=== PATIENT | male | born 1980 | race American Indian/Alaskan Native ===

== ENCOUNTER 2016-03-12 12:22 | Observation (INO) | payer OTHER ==
[~2016-03-12 12:22] MED LIST: ANCEF/STERILE WATER 2 GM/20 ML IV NR
--- NOTE | 2016-03-12 12:52 | Anesthesia Day of Surgery ---
Anesthesia Day of Surgery - Day of Surgery Patient Examined: Yes Patient H&P Reviewed: Yes Patient is NPO: Yes
--- NOTE | 2016-03-12 12:55 | Anesthesia Consultation ---
Anesthesia Consult and Med Hx Date of service: 03/12/16 - Airway Anesthetic Teeth Evaluation: Good ROM Head & Neck: Adequate Mental/Hyoid Distance: Adequate Mallampati Class: Class II Intubation Access Assessment: Probably Good - Pulmonary Exam CTA: Yes - Cardiac Exam Cardiac Exam: RRR - Pre-Operative Health Status ASA Pre-Surgery Classification: ASA2 Proposed Anesthetic Plan: General - Pre-Anesthesia Comment Pre-Anesthesia Comments: Cocaine and marijuanna last used on 03/10/16. - Pulmonary Hx Smoking: No Hx Sleep Apnea: No (DANITZA PRE SCREEN LOW RISK) - Cardiovascular System Hx Hypertension: No (high cholesterol, noncompliance with meds) - Central Nervous System Hx Seizures: No CVA: No - Gastrointestinal Hx Gastroesophageal Reflux Disease: Yes (no meds) - Endocrine Hx Renal Disease: No Hx Liver Disease: No Hx Non-Insulin Dependent Diabetes: No - Hematic Hx Anemia: No Hx Sickle Cell Disease: No - Other Systems Hx Alcohol Use: Yes (6 DRINKS PER DAY) Hx Substance Use: Yes (DAILY MARIJUANA, cocaine last used on 03/10/16) Hx Cancer: No Hx Obesity: Yes - Additional Comments Anesthesia Medical History Comments: NAC
[2016-03-12] MEDS ORDERED: VERSED IV NR (13:00)
[2016-03-12] MEDS ORDERED: PEPCID PO NR (13:00)
[2016-03-12] MEDS ORDERED: LACTATED RINGERS 1,000 ML IV SCH (13:00)
[2016-03-12 13:29] LABS: Basophils % (Auto) 0.8 % (0.0-1.8); Eosinophils % (Auto) 2.8 % (0.0-4.3); Hematocrit 45.1 % (35.5-45.6); Mean Corpuscular HGB Conc 33 % (32-34); Mean Corpuscular Hemoglobin 28 pg (28-32); Mean Corpuscular Volume 84 fl (84-94); Platelet Count 211 K/mm3 (140-440); Red Blood Count 5.35 M/mm3 (3.65-5.03); Red Cell Distribution Width 13.8 % (13.2-15.2); White Blood Count 3.5 K/mm3 (4.5-11.0)
[2016-03-12 13:43] LABS: Urine Drugs of Abuse Note Disclamer
[2016-03-12] MEDS ORDERED: DIPRIVAN 10 MG/ML IV ONE ×2 (15:07)
--- NOTE | 2016-03-12 15:08 | Post Operative Note ---
Pre-op diagnosis: hematuria ..? bladder lesion Post-op diagnosis: same Findings: mass at BN medial deviated ureters Procedure: cysto turbt Anesthesia: GETA Surgeon: EFREM HDZ Estimated blood loss: minimal Pathology: list (bladder lesions) Specimen disposition: to lab Condition: stable Disposition: PACU
--- NOTE | 2016-03-12 15:09 | Discharge Summary ---
Short Stay Discharge Plan Activity: other (no straining ) Weight Bearing Status: Full Weight Bearing Diet: low fat, low cholesterol, low salt Special Instructions: other (inc fluids .. no etoh) Durable Medical Equipment Needed Upon Discharge: other (young ) Follow up with: KRISTIE BRAND MD [Primary Care Provider] - 7 Days EFREM HDZ MD [Staff Physician] - 7 Days
[2016-03-12] MEDS ORDERED: DILAUDID ONE (15:11)
[2016-03-12] MEDS ORDERED: XYLOCAINE MPF 2% ONE (15:11)
[2016-03-12] MEDS ORDERED: WATER FOR IRRIG STERILE IR ONE ×2 (15:47)
[2016-03-12] MEDS ORDERED: OMNIPAQUE 300 MG/50 ML (CATH LAB) IV ONE (15:47)
[2016-03-12] MEDS ORDERED: NACL 0.9% IR ONE (16:00)
[2016-03-12] MEDS ORDERED: AMBIEN PO PRN (16:34)
[2016-03-12] MEDS ORDERED: NORCO 5/325 PO PRN (16:34)
[2016-03-12] MEDS ORDERED: NARCAN 0.4 MG/1 ML IV PRN (16:34)
[2016-03-12] MEDS ORDERED: ZOFRAN IV PRN ×2 (16:34→17:16)
[2016-03-12] MEDS ORDERED: NACL 0.9% IR SCH (17:00)
[2016-03-12] MEDS ORDERED: D5W/0.45% NACL/KCL 20 MEQ 1,000 ML IV SCH (17:00)
[2016-03-12] MEDS ORDERED: MORPHINE IV PRN (17:16)
--- NOTE | 2016-03-12 17:27 | Post Anesthesia Evaluation ---
- Post Anesthesia Evaluation Patient Participated: Yes Airway Patent: Yes Stable Respiratory Function: Yes Nausea/Vomiting: No Temp > 96.8F: Yes Pain Manageable: Yes Adequeate Hydration: Yes Anesthesia Complications: No Block Receding Appropriately: Not Applicable Patient on Ventilator: No
[2016-03-12] MEDS: DILAUDID IV PRN ×2 (17:46→17:55)
--- NOTE | 2016-03-12 18:32 | Operative Report ---
PREOPERATIVE DIAGNOSES: Hematuria and bladder mass. POSTOPERATIVE DIAGNOSES: Hematuria and bladder mass. PROCEDURE: Cystoscopy, retrograde, transurethral resection of the bladder mass. SURGEON: Waldemar Vuong MD ANESTHESIA: General. FINDINGS: This is a gentleman who presents with hematuria and bladder lesions. He now presents for cystoscopy. He reports that he uses cocaine and heavy alcohol abuse as well. He smokes lots of marijuana as well. DESCRIPTION OF PROCEDURE: The patient brought to the operating room and placed on the operating table. Following induction of anesthesia, placed in lithotomy position, prepped and draped in the usual sterile fashion. Cystourethroscopy upon entering the bladder showed a lesion at the 8 o'clock position and right in the midline and towards the left of the bladder neck. It almost looked like a cyst, possibly congenital cystic mass. It did not look like a papillary bladder cancer. It was distal to the orifices and trigone. Retrograde showed good filling, good drainage with medial deviation of the ureters. There were no persistent filling defects and there was good drainage. A #24 resectoscope was placed and the mass was resected. We did not do any resection on the left side of the bladder neck and most of the bladder neck was left intact because of his young age. We resected the mass and using the ball electrode, we cauterized it. The patient tolerated the procedure well. All the chips were evacuated out. We left a 3-way Finn. It is 4:30, we will observe him overnight with a [place]by drip. I notified his , his child, and he was brought to recovery in stable condition. JOB# [id number] SOHAIL/DYAN
[2016-03-12] MEDS: MORPHINE IV PRN (19:45)
[2016-03-12] MEDS: ANCEF/NS 1 GM/50 ML 50 ML IV SCH (23:00)
[2016-03-13] MEDS: MORPHINE IV PRN (02:30)
[2016-03-13] MEDS: ANCEF/NS 1 GM/50 ML 50 ML IV SCH (06:00)
--- NOTE | 2016-03-13 08:16 | Admit Criteria Form ---
Admission Criteria Documentation: AMBULATORY SURGERY EXCEPTION CRITERIA Ambulatory Surgery Exception Criteria ( Place 'X' for any and all applicable criteria): Surgery or procedure performed on ambulatory basis may require inpatient stay for[A] ANY ONE of the following(1)(2)(3)(4)(5)(6)(7)(8)(9): [] I. A preoperative situation, condition, or finding that warrants inpatient stay as indicated by ANY ONE of the following: [] a) Inpatient care needed because of severity of a disease or condition rather than the surgery (eg, severe cardiac or respiratory disease, severe infection) (15) (16 ) (17) (18) [] b) Emergent procedure (eg, angioplasty for acute ischemia)(19) [] c) Complex surgical approach or situation as indicated by ANY ONE of the following(3): [] i) Open approach needed instead of usual endoscopic, transcatheter, or other less invasive procedure [] ii) Difficult approach because of previous operation [] iii) Airway monitoring required after open neck procedures(20)(21) [] iv) Large mass requiring unusually extensive dissection [] v) Additional complicating feature requiring inpatient care (eg, drain management)(22(23): [] d) Major surgery in a pt with high anesthetic risk as indicated by ANY ONE of the following (2)(3)(5)(7)(8): [] i) ASA risk class III or higher (severe systemic disease impairing function) [D] [] ii) Advanced age (eg, older than 85 years)(14)(24) [] iii) Symptomatic heart failure(25) [] iv) Symptomatic asthma or COPD(8)(21) [] v) Morbid obesity with hemodynamic or respiratory problems(20)( 21)(26)(27) [] vi) Obstructive sleep apnea(20)(21) [] vii) Former premature infants who are younger than 60 weeks [] viii) High risk for severe postoperative abnormalities (eg, severe postoperative hypocalcemia after parathyroidectomy for severe hyperparathyroidism)(27)( 28) [] ix) Unstable angina(25) [] e) Drug-related risk requiring inpatient stay as indicated by ANY ONE of the following(5)(10)(14)(32)(33) [] i) Procedure requires discontinuing drugs or other therapy (eg , antiarrhythmic medication, antiseizure medication), which necessitates inpatient observation or treatment.(18)(31) [] ii) Major surgery and high risk drug use as indicated by ANY ONE of the following: [] 1) Active abuse of cocaine or similar drug [] 2) Monoamine oxidase inhibitor use [] 3) Other drug identified as posing risk [] f) Inadequate outpatient care situation as indicated by ANY ONE of the following(5)(10)(14)(32)(33) [] i) Patient lives remote from medical facility and procedure has urgent complication potential, and temporary nearby residence cannot be arranged [] ii) Patient will have postprocedure incapacitation and inadequate assistance at home, or alternative level of care cannot be arranged. [] iii) Patient will have long general anesthesia or procedure side effect resolution time, and competent person to stay with patient on first postoperative night at home or alternative level of care cannot be arranged. []iv) Other inadequate outpatient situation that cannot be handled by other means [X] II. A perioperative event, condition, or finding that warrants inpatient stay as indicated by ANY ONE of the following (1)(2)(3): [] a) Inadequate physiologic recovery: cardiovascular, respiratory, or hemodynamic status not normal or near preoperative baseline(18) [] b) Hemodynamic instability [] c) Patient not alert with near normal or baseline mental status [] d) Temperature not normal or as expected and not appropriate for outpatient treatment of condition [] e) Ambulatory or appropriate activity level status not yet achieved post procedure [E](34)(35)(36) [] f) Operative site not appropriate (eg, unexpected or excessive drainage or bleeding) [X] g) Postoperative effects not resolved or adequately managed (eg, significant pain or vomiting not appropriate for outpatient or next level of care)(10)(12) [] h) Complicating features requiring inpatient care as indicated by ANY ONE of the following(37): [] i) Severe complications of procedure (eg, bowel injury, airway compromise, vascular injury,severe hemorrhage) [] ii) Extensive (eg, dissection far beyond usual scope of procedure ) or prolonged (eg, 120 minutes beyond usual) surgery needed requiring inpatient postoperative care [] iii) Conversion to an open or complex procedure that requires inpatient care (eg, open vs laparoscopic cholecystectomy, abdominal vs vaginal hysterectomy)(38) [] iv) Comorbid condition or test result identified during or post procedure that requires inpatient care (7) [] v) Malignant hyperthermia(30) [] vi) Other complicating feature requiring inpatient care(22)(23) Inpatient stay may be needed until ALL of the following are present (1)(2)(3)(4) (5)(6)(10)(14)(33)(40): []a) Physiologic recovery: cardiovascular, respiratory, and hemodynamic status normal or near preoperative baseline []b) Hemodynamic stability []c) Patient alert, with near normal or baseline mental status []d) Temperature appropriate: patient afebrile or temperature appropriate for outpt treatment of condition []e) Activity level appropriate: ambulatory or appropriate activity level post procedure []f) Operative site appropriate as indicated by ALL of the following: []i) Site dry or with expected drainage []ii) Any blood noted is as expected for procedure. []g) Postoperative effects resolved or managed as indicated by ALL of the following: []i) Pain management appropriate for outpatient (or next level of) care(10) []ii) Minimal nausea and vomiting: if present, successfully treated with oral medication(12) []iii) Headache, dizziness, or drowsiness (if present) are mild. []h) Voiding status acceptable as indicated by ANY ONE of the following: []i) Voiding spontaneously []ii) No voiding but instructions given for follow-up in 6 to 8 hours []iii) Urinary catheter in place, and instructions given for follow-up []i) Complicating features requiring inpatient care manageable at a lower level of care(37) []j) Comorbid conditions manageable at a lower level of care(37) The original [employer] content created by [employer] has been revised. The portions of the content which have been revised are identified through the use of italic text or in bold, and [employer] has neither reviewed nor approved the modified material. All other unmodified content is copyright [employer]. Please see references footnoted in the original [employer] edition 2016 Admission Criteria Met: Yes
--- NOTE | 2016-03-13 08:49 | Fluoroscopy Report ---
Retrograde pyelogram: Injection of contrast was made into both ureters. There is generally good filling of the right ureter and intrarenal collecting system with no abnormality noted. The left ureter is well filled and appears normal however the intrarenal collecting system is incompletely opacified. There is respiratory motion bilaterally. Impressions: The findings are somewhat compromised by respiratory motion but no pathology is identified.
[2016-03-13 09:20] VITALS: BP 124/85
--- NOTE | 2016-03-13 12:41 | Progress Note ---
Assessment and Plan young out clear tov Subjective Date of service: 03/13/16 Principal diagnosis: bladder lesions Objective - Constitutional Vitals: Vital Signs - 12hr 03/13/16 03/13/16 05:00 08:00 Temperature 98.5 F 98.9 F Pulse Rate [ 73 70 Left] Respiratory 20 18 Rate Blood Pressure 130/64 124/85 [Left Arm] O2 Sat by Pulse 97 99 Oximetry General appearance: Present: no acute distress - Neck Neck: supple - Respiratory Respiratory effort: normal Extremities: no ischemia - Genitourinary Male genitourinary: normal - Labs CBC & Chem 7: 03/12/16 13:05 Labs: Abnormal lab results 03/12/16 Range/Units 13:05 WBC 3.5 L (4.5-11.0) K/mm3 RBC 5.35 H (3.65-5.03) M/mm3 Lymph % (Auto) 43.2 H (13.4-35.0) % [place] % (Auto) 9.7 H (0.0-7.3) % Seg Neutrophils # 1.5 L (1.8-7.7) K/mm3
--- NOTE | 2016-03-13 12:43 | Discharge Summary ---
Short Stay Discharge Plan Activity: other (no straining ) Weight Bearing Status: Full Weight Bearing Diet: regular Special Instructions: other (inc fluids ) Follow up with: EFREM HDZ MD [Staff Physician] - 7 Days KRISTIE BRAND MD [Primary Care Provider] - 7 Days
== END 2016-03-13 15:36 | disposition home or self-care (01) ==
LOC: OR 12:22 → 2B-SURG 16:34
PROVIDERS: ADMIT Urology; ATTEND Urology
DX: R31.9 Hematuria, unspecified (principal); N32.9 Bladder disorder, unspecified; D41.4 Neoplasm of uncertain behavior of bladder; I10 Essential (primary) hypertension; Z71.3 Dietary counseling and surveillance
CPT/HCPCS: 36415; 52235; 74420; 80307; 85025; 88305; 93005; 93010; 96365; 96375; 96376; A4217; C1758; G0378; J0690; J1170; J2250; J2270; J2704; J7120; Q9967

== ENCOUNTER 2018-11-12 15:54 | Emergency (ER) | payer OTHER ==
[2018-11-12] MEDS ORDERED: ZOFRAN IV ONE (16:58)
[2018-11-12] MEDS ORDERED: MORPHINE IM ONE (16:58)
[2018-11-12] MEDS ORDERED: NACL 0.9% 1000 ML 1,000 ML IV ONE (16:58)
--- NOTE | 2018-11-12 17:00 | Event Note ---
ED Screening Note Date of service: 11/12/18 Time: 16:55 ED Screening Note: 37 y/o male referred to ER from Dr. Land for CT. Patient comes of urinary retention and burning with defecation and urination. Having heavy pressure in groin. Having testicle pain. This initial assessment/diagnostic orders/clinical plan/treatment(s) is/are subject to change based on patients health status, clinical progression and re- assessment by fellow clinical providers in the ED. Further treatment and workup at subsequent clinical providers discretion. Patient/guardian urged not to elope from the ED as their condition may be serious if not clinically assessed and managed. Initial orders include:
[2018-11-12 17:49] LABS: Basophils % (Auto) 0.7 % (0.0-1.8); Eosinophils # (Auto) 0.1 K/mm3 (0.0-0.4); Eosinophils % (Auto) 1.7 % (0.0-4.3); Hematocrit 46.7 % (35.5-45.6); Hemoglobin 15.8 gm/dl (11.8-15.2); Lymphocytes # (Auto) 1.7 K/mm3 (1.2-5.4); Lymphocytes % (Auto) 35.5 % (13.4-35.0); Mean Corpuscular HGB Conc 34 % (32-34); Mean Corpuscular Volume 86 fl (84-94); Monocytes # (Auto) 0.4 K/mm3 (0.0-0.8); Platelet Count 266 K/mm3 (140-440); Red Blood Count 5.45 M/mm3 (3.65-5.03); Red Cell Distribution Width 14.4 % (13.2-15.2)
--- NOTE | 2018-11-12 18:09 | Emergency Department Report ---
ED General Adult HPI - General Chief complaint: Urogenital-Male Stated complaint: PAIN WHEN URINATION Time Seen by Provider: 11/12/18 16:54 Source: patient Mode of arrival: Ambulatory Limitations: No Limitations - History of Present Illness Initial comments: Patient is a 37-year-old male that presents emergency room with complaints of dysuria and difficulties having a bowel movement and lower abdominal fullness. Patient states the abdominal pain is a 3 out of 10. Patient states his pain is better with rest and worse with movement. Patient states that it reilly when he urinates. Patient states one month ago he had a bladder infection was treated with antibiotics. Patient was referred to urologist and and the urologist sent him here for a CAT scan and further evaluation and treatment. -: Sudden Severity scale (0 -10): 6 - Related Data Previous Rx's Medication Instructions Recorded Last Taken Type Ibuprofen [Ibuprofen 800] 800 mg PO TID PRN #30 tablet 03/14/18 Unknown Rx Metoclopramide [Reglan] 10 mg PO TID PRN #30 tab 03/14/18 Unknown Rx diphenhydrAMINE [Benadryl CAP] 25 mg PO Q8HR PRN #1 capsule 03/14/18 Unknown Rx Naproxen [Naprosyn] 500 mg PO Q12HR PRN #10 tablet 11/12/18 Unknown Rx Sulfamethoxazole/Trimethoprim 1 each PO BID 14 Days #28 tablet 11/12/18 Unknown Rx [Bactrim DS TAB] Tamsulosin [Flomax] 0.4 mg PO QDAY 14 Days #14 cap 11/12/18 Unknown Rx Allergies Allergy/AdvReac Type Severity Reaction Status Date / Time No Known Allergies Allergy Verified 11/12/18 15:57 ED Review of Systems ROS: Stated complaint: PAIN WHEN URINATION Other details as noted in HPI Constitutional: denies: chills, fever Eyes: denies: eye pain, eye discharge, vision change ENT: denies: ear pain, throat pain Respiratory: denies: cough, shortness of breath, wheezing Cardiovascular: denies: chest pain, palpitations Endocrine: no symptoms reported Gastrointestinal: abdominal pain. denies: nausea, diarrhea Genitourinary: dysuria. denies: urgency Musculoskeletal: denies: back pain, joint swelling, arthralgia Skin: denies: rash, lesions Neurological: denies: headache, weakness, paresthesias Psychiatric: denies: anxiety, depression Hematological/Lymphatic: denies: easy bleeding, easy bruising ED Past Medical Hx - Past Medical History Previous Medical History?: Yes Hx Hypertension: No (high cholesterol, noncompliance with meds) Hx Congestive Heart Failure: No Hx Diabetes: No Hx GERD: Yes Hx Liver Disease: No Hx Renal Disease: No Hx Sickle Cell Disease: No Hx Seizures: No Hx Asthma: No Hx COPD: No - Surgical History Past Surgical History?: Yes 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 - Social History Smoking Status: Never Smoker Substance Use Type: None - Medications Home Medications: Home Medications Medication Instructions Recorded Confirmed Last Taken Type Ibuprofen [Ibuprofen 800] 800 mg PO TID PRN #30 tablet 03/14/18 Unknown Rx Metoclopramide [Reglan] 10 mg PO TID PRN #30 tab 03/14/18 Unknown Rx diphenhydrAMINE [Benadryl CAP] 25 mg PO Q8HR PRN #1 capsule 03/14/18 Unknown Rx Naproxen [Naprosyn] 500 mg PO Q12HR PRN #10 tablet 11/12/18 Unknown Rx Sulfamethoxazole/Trimethoprim 1 each PO BID 14 Days #28 tablet 11/12/18 Unknown Rx [Bactrim DS TAB] Tamsulosin [Flomax] 0.4 mg PO QDAY 14 Days #14 cap 11/12/18 Unknown Rx ED Physical Exam - General Limitations: No Limitations General appearance: alert, in no apparent distress - Head Head exam: Present: atraumatic, normocephalic - Eye Eye exam: Present: normal appearance - ENT ENT exam: Present: mucous membranes moist - Neck Neck exam: Present: normal inspection - Respiratory Respiratory exam: Present: normal lung sounds bilaterally. Absent: respiratory distress, wheezes, rales - Cardiovascular Cardiovascular Exam: Present: regular rate, normal rhythm. Absent: systolic murmur, diastolic murmur, rubs, gallop - GI/Abdominal GI/Abdominal exam: Present: soft, tenderness, normal bowel sounds - Rectal Rectal exam: Present: normal inspection, heme (-) stool, tenderness, prostate tenderness, prostate enlargement - exam: Present: normal inspection, circumcision. Absent: testicular tenderness, urethral discharge, scrotal swelling External exam: Present: normal external exam - Extremities Exam Extremities exam: Present: normal inspection - Back Exam Back exam: Present: normal inspection, full ROM. Absent: tenderness, CVA tenderness (R), CVA tenderness (L), paraspinal tenderness, vertebral tenderness - Neurological Exam Neurological exam: Present: alert, oriented X3 - Psychiatric Psychiatric exam: Present: normal affect, normal mood - Skin Skin exam: Present: warm, dry, intact, normal color. Absent: rash ED Course Vital Signs 11/12/18 11/12/18 11/12/18 16:41 18:19 19:36 Temperature 98.6 F 98 F Pulse Rate 78 73 Respiratory 20 16 18 Rate Blood Pressure 153/97 Blood Pressure 134/70 [Left] Blood Pressure 153/97 134/70 [Right] O2 Sat by Pulse 98 100 Oximetry 11/12/18 11/12/18 11/12/18 20:00 20:06 22:35 Temperature 98.2 F Pulse Rate 73 Respiratory 16 18 18 Rate Blood Pressure Blood Pressure 122/69 [Left] Blood Pressure [Right] O2 Sat by Pulse 99 Oximetry - Reevaluation(s) Reevaluation #1: Patient states his pain is better. I discussed all results with patient. Patient is stable for discharge. Patient will be discharged home. Patient agrees with plan of care. Patient given discharge instructions. Patient voiced understanding discharge instructions 11/12/18 22:12 ED Medical Decision Making - Lab Data Result diagrams: 11/12/18 17:07 11/12/18 17:07 - Radiology Data Radiology results: report reviewed CT ABDOMEN AND PELVIS WITH AND WITHOUT IV CONTRAST, 11/12/2017 INDICATION: Generalized abdominal pain and constipation. TECHNIQUE: Multiple axial CT images of the abdomen and pelvis were acquired with and without intravenous contrast. Sagittal and coronal reformats were obtained. All CT performed at this facility utilize dose reduction techniques including automated exposure control, iterative reconstruction and weight based dosing when appropriate to reduce patient radiation dose to as low as reasonably achievable. . COMPARISON: No prior studies are available for comparison. FINDINGS: Limited imaging of the bilateral lung bases demonstrate no evidence of acute abnormality. Abdomen: The liver, spleen, gallbladder, pancreas, bilateral adrenal glands and bilateral kidneys show no evidence of acute abnormality. The large and small bowel are normal in caliber. There is no evidence of bowel obstruction. The appendix is air-filled and normal in caliber. Pelvis: No significant amount of free pelvic fluid is seen. The urinary bladder appears normal. Evaluation of bony structures demonstrates no evidence of acute bony abnormality. IMPRESSION: 1. No CT evidence of acute inflammatory or obstructive process within the abdomen or pelvis. - Medical Decision Making Patient is a 37-year-old male that presents emergency room with complaints of abdominal pain, dysuria. Patient had a rectal exam upon initial exam was found to have prostatitis. Patient given antibiotics and Toradol prior to discharge. Patient was given fluids and Zofran and morphine and his pain improved. Patient had a CT done of abdomen and pelvis and was negative. Patient discharged home. Patient stable at discharge. Patient given discharge instructions. Patient's labs unremarkable. - Differential Diagnosis abd pain. dysuria. uti. prostatitis. Critical care attestation.: If time is entered above; I have spent that time in minutes in the direct care of this critically ill patient, excluding procedure time. ED Disposition Clinical Impression: Acute prostatitis, Dysuria Abdominal pain Qualifiers: Abdominal location: lower abdomen, unspecified Qualified Code(s): R10.30 - Lower abdominal pain, unspecified Disposition: TO HOME OR SELFCARE Is pt being admited?: No Does the pt Need Aspirin: No Condition: Stable Instructions: Prostatitis (ED), Acute Abdominal Pain (ED) Additional Instructions: Patient to follow up with primary care in 2-3 days. Patient to follow-up with u rologist in 2-3 days. Patient to return to ER if condition worsens. Patient to take meds as directed. Patient increase water. . Patient to take Tylenol or ibuprofen when necessary for pain. Prescriptions: Sulfamethoxazole/Trimethoprim [Bactrim DS TAB] 1 each PO BID 14 Days #28 tablet Tamsulosin [Flomax] 0.4 mg PO QDAY 14 Days #14 cap Naproxen [Naprosyn] 500 mg PO Q12HR PRN #10 tablet PRN Reason: pain Referrals: KRISTIE BRAND MD [Primary Care Provider] - 2-3 Days Time of Disposition: 22:16
[2018-11-12 19:04] LABS: Alanine Aminotransferase 33 units/L (7-56); Albumin 4.4 g/dL (3.9-5); BUN/Creatinine Ratio 10; Blood Urea Nitrogen 11 mg/dL (9-20); Calcium 9.8 mg/dL (8.4-10.2); Hemolysis Index 65
[2018-11-12] MEDS ORDERED: DILAUDID IV ONE ×2 (19:24→20:25)
[2018-11-12] MEDS ORDERED: ZOFRAN ONE (19:24)
[2018-11-12] MEDS ORDERED: MORPHINE ONE (19:25)
--- NOTE | 2018-11-12 21:54 | Cat Scan Report ---
CT ABDOMEN AND PELVIS WITH AND WITHOUT IV CONTRAST, 11/12/2017 INDICATION: Generalized abdominal pain and constipation. TECHNIQUE: Multiple axial CT images of the abdomen and pelvis were acquired with and without intraven ous contrast. Sagittal and coronal reformats were obtained. All CT performed at this facility utiliz e dose reduction techniques including automated exposure control, iterative reconstruction and weight based dosing when appropriate to reduce patient radiation dose to as low as reasonably achievable. . COMPARISON: No prior studies are available for comparison. FINDINGS: Limited imaging of the bilateral lung bases demonstrate no evidence of acute abnormality. Abdomen: The liver, spleen, gallbladder, pancreas, bilateral adrenal glands and bilateral kidneys kuldip w no evidence of acute abnormality. The large and small bowel are normal in caliber. There is no evid ence of bowel obstruction. The appendix is air-filled and normal in caliber. Pelvis: No significant amount of free pelvic fluid is seen. The urinary bladder appears normal. Evaluation of bony structures demonstrates no evidence of acute bony abnormality. IMPRESSION: 1. No CT evidence of acute inflammatory or obstructive process within the abdomen or pelvis. Signer Name: Willow Mcadams MD Signed: 11/12/2018 9:50 PM Workstation Name: [id number]
[2018-11-12] MEDS ORDERED: TORADOL IV ONE (22:12)
[2018-11-12] MEDS ORDERED: ROCEPHIN/NS 1 GM/50 ML 1 GM/50 ML BAG IV ONE (22:12)
[2018-11-12 23:01] VITALS: BP 110/71
== END 2018-11-12 23:00 | disposition home or self-care (01) ==
LOC: ED 15:54
DX: N41.0 Acute prostatitis (principal); G21.9 Secondary parkinsonism, unspecified; Z79.899 Other long term (current) drug therapy
CPT/HCPCS: 36415; 74178; 80053; 85025; 96365; 96375; 96376; 99284; J0696; J1170; J1885; J2405; J7030; Q9967; J2270